=== PATIENT | male | born 1970 | race Caucasian/White ===

== ENCOUNTER 2020-07-03 12:25 | Emergency (ER) | payer SELFPAY ==
[~2020-07-03] VITALS: Ht 177.8 cm; Wt 106.8 kg
[2020-07-03 12:33] VITALS: TEMP 98.4
[2020-07-03] MEDS ORDERED: NORCO 325 MG-51 TAB PO (14:54)
[2020-07-03 14:58] VITALS: BP 135/88; PULSE 88
== END 2020-07-03 15:00 | disposition home or self-care (01) ==
LOC: COL.ER 12:25
DX: N48.1 Balanitis (principal); Z79.2 Long term (current) use of antibiotics; F17.210 Nicotine dependence, cigarettes, uncomplicated
CPT/HCPCS: J0696